=== PATIENT | male | born 1940 | race Caucasian/White ===

== ENCOUNTER → 2020-06-08 | Outpatient (REF) | LOC: ZLAB.WCH 10:03 | DX: Z01.89 Encounter for other specified special examinations (principal) ==

== ENCOUNTER → 2020-09-08 | Outpatient (CLI) | payer MEDICARE ==
[~2020-09-08] MED LIST: BACTRIM DS 8001 TAB PO; BUSPAR10 MG PO; CLARITIN 1010 MG/TAB PO; DEPAKOTE ER 50500 MG PO; DEPAKOTE500 MG PO; DIFLUCAN200 MG PO; FLAGYL500 MG PO; LEVAQUIN 750MG750 M1 PO; OMNICEF 300MG300 MG PO; OS-CAL 500 + D1 TAB PO; PROTONIX 40MG T40 MG PO; SEROQUEL 2525 MG/TAB PO; ULTRAM 50MG TAB50 MG PO; ZOLOFT 100MG100 MG PO
== END ==
LOC: ZCOL.LAB
DX: Z01.89 Encounter for other specified special examinations (principal)

== ENCOUNTER → 2020-09-29 | Outpatient (REF) | LOC: ZLAB.WCH 10:12 | DX: Z01.89 Encounter for other specified special examinations (principal) ==

== ENCOUNTER 2020-10-10 18:47 | Inpatient (IN) | payer MEDICARE ==
--- NOTE | 2020-10-10 19:30 | NUR ---
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 Call marnie w/i reach, NPO status.
[2020-10-10 20:58] VITALS: BP 124/91; PULSE 103; TEMP 97.6
[2020-10-10] MEDS ORDERED: BACTRIM DS 8001 TAB PO (21:31)
[2020-10-10] MEDS ORDERED: OS-CAL 500 + D1 TAB PO (21:32)
[2020-10-10] MEDS ORDERED: ZOLOFT 100MG100 MG PO (21:33)
[2020-10-10] MEDS ORDERED: PROTONIX 40MG T40 MG PO (21:34)
[2020-10-10] MEDS ORDERED: DEPAKOTE ER 50500 MG PO (21:34)
[2020-10-10] MEDS ORDERED: ULTRAM 50MG TAB50 MG PO (21:35)
[2020-10-10] MEDS ORDERED: CLARITIN 1010 MG/TAB PO (21:36)
[2020-10-10] MEDS ORDERED: BUSPAR10 MG PO (21:37)
[2020-10-10] MEDS ORDERED: SEROQUEL 2525 MG/TAB PO (21:37)
[2020-10-11 01:11] VITALS: BP 145/83; PULSE 72; TEMP 97.7
--- NOTE | 2020-10-11 01:47 | NUR ---
Patient called nurse into room, c/o pain to R arm- IV infiltrated into RAC, R arm swollen- removed IV with tip intact, elevated arm - ice applied.
[2020-10-11 03:39] VITALS: BP 121/80; PULSE 68; TEMP 97.6
--- NOTE | 2020-10-11 03:41 | NUR ---
Patient with new IV in L hand tolerating IV fluids as ordered, VS stable, NPO status maintained, urostomy continues to drain yellow urine per gravity to bag, ambulates independently in room, denies nausea/vomitting, had loose stools throughout shift. Updated on plan of care.
[2020-10-11 06:00] LABS: BASO % 0.4 % (0.0-2.0); EOS # 0.1 (0.0-0.7); EOS % 1.1 % (0-4.0); GRAN # 7.4 (1.4-6.5); GRAN % 78.2 % (42.2-75.2); HEMATOCRIT 58.2 % (42.0-52.0); HEMOGLOBIN 19.5 g/dl (13.5-18.0); LYMPH % 10.6 % (20.0-51.0); MEAN CELL VOLUME 95 fl (80.0-100.0); MEAN CORPUSCULAR HEMOGLOBIN 32 pg (27.0-31.0); MEAN CORPUSCULAR HGB CONC 34 g/dl (33.0-37.0); MEAN PLATELET VOLUME 8.3 fl (7.4-10.4); MONO # 0.8 (0.1-0.6); MONO % 8.5 % (1.7-9.3); PLATELET COUNT 295 K/mm3 (130-400); RED BLOOD COUNT 6.11 M/mm3 (4.20-5.60); REDCELL DISTRIBUTION WIDTH-CV 13.6 % (11.5-14.5)
[2020-10-11 06:11] LABS: ALBUMIN 3.7 gm/dL (3.5-5.0); BILIRUBIN,TOTAL 0.4 mg/dL (0.0-1.0); CALCIUM 8.9 mg/dL (8.4-10.2); CREATININE, serum 1.64 (0.66-1.25); POTASSIUM 4.7 mmol/L (3.4-5.0); TOTAL PROTEIN 7.2 gm/dL (6.4-8.2)
[2020-10-11 08:29] VITALS: BP 128/77; PULSE 66; TEMP 97.5
--- NOTE | 2020-10-11 09:08 | NUR ---
Patient resting in bed reporting pain 6/10 to lower abdomen cramping pain that has been constant up until right now and now it is intermittent. Will continue to monitor.
--- NOTE | 2020-10-11 11:02 | NUR ---
Patient was seen by Dr. Singh see new orders for Full Liquid diet. Patient has been having bowel movements, but keeps flushing the stool so nurse is unable to observe. Will continue to monitor. His is sitting at his side at this time.
[2020-10-11 11:42] VITALS: BP 115/57; PULSE 58; TEMP 97.8
--- NOTE | 2020-10-11 12:30 | NUR ---
SW met with patient to complete intake. Patient states that he lives in [place] with his Leta [phone]. Patient provies that he does not utilize DME nor does he need assistance with ADL's, patient states that he does not currently utilize HH services. Patient states that his PCP is Dr. Graham, pharmacy is [facility] and states he can afford his medications. Patient provides that he does not wish to appoint any one as DPOA-HC at this time. Patient states that his plan is to return to his [place] and does not have any questions or concerns with doing so at this time. SW will continue to follow.
--- NOTE | 2020-10-11 14:54 | NUR ---
Care resumed from Isela. Patient up to the bathroom, steady gait. Full liquid tray ordered. Denies nausea. SLight cramping pain. Ivf per orders. Urostomy managed independently by patient, reports he has had for 15 years. Anthony mejía.
[2020-10-11 16:02] VITALS: BP 118/65; PULSE 63; TEMP 97.7
--- NOTE | 2020-10-11 16:48 | NUR ---
Spoke to , called for discharge orders. Patient called & inquired about discharge. I spoke to patient. He denies nausea. He tolerated full liquids. Patient denies pain, he is worn out from having frequent loose stools. He thinks he would like to go home & rest in his own bed. Patient given all discharge instructions. Denies questions or concerns. Int dc. Patient wheeld out with all belongings & patient also given discharge education.
[2021-03-10] MEDS ORDERED: DIFLUCAN200 MG PO (06:03)
== END 2020-10-11 16:51 | disposition home or self-care (01) | DRG 390 ==
LOC: SURG 18:47
PROVIDERS: ADMIT Surgery
DX: K56.51 Intestinal adhesions [bands], with partial obstruction (principal); Z85.51 Personal history of malignant neoplasm of bladder; M19.90 Unspecified osteoarthritis, unspecified site; K21.9 Gastro-esophageal reflux disease without esophagitis; F32.9 Major depressive disorder, single episode, unspecified; Z96.653 Presence of artificial knee joint, bilateral
CPT/HCPCS: J3480

== ENCOUNTER → 2020-10-19 | Outpatient (CLI) | payer MEDICARE | LOC: COL.RAD 07:22 | DX: K56.690 Other partial intestinal obstruction (principal) ==

== ENCOUNTER → 2020-10-28 | Outpatient (REF) | LOC: ZLAB.WCH 10:23 | DX: Z01.89 Encounter for other specified special examinations (principal) ==

== ENCOUNTER 2021-01-12 00:12 | Inpatient (IN) | payer MEDICARE ==
[~2021-01-12] VITALS: Ht 180.3 cm; Wt 112.5 kg
[2021-01-12] VITALS (10 sets, daily range): BP systolic 113–144; BP diastolic 63–78; PULSE 65–102; TEMP 98.2–103.7
[~2021-01-12 00:12] MED LIST changes: -DEPAKOTE500 MG PO; -DIFLUCAN200 MG PO; -FLAGYL500 MG PO; -LEVAQUIN 750MG750 M1 PO; -OMNICEF 300MG300 MG PO
--- NOTE | 2021-01-12 01:39 | NUR ---
ADMITTED TO ROOM 343 VIA EMS, PATIENT UNABLE TO ASSIST WITH TRANSFER FROM EMS CART TO BED D/T SEVERE WEAKNESS. PATIENT ANSWERED ORIENTATION QUESTIONS WHEN REPEATED ORIENT QUESTIONS. UNABLE TO ANSWER QUESTIONS REGARDING HOME MEDS OR REASON FOR ADMISSION TO HOSP. PATIENT'S FACE VERY CRYSTAL AT THIS TIME. REPORTS SOME NAUSEA. HOSPITAL LIST EXAMINED PATIENT UPON ADMIT TO ROOM. OBSERVED TREMOR TO RIGHT HAND THAT PATIENT ADMITTED TO HAVING CHRONICALLY.
--- NOTE | 2021-01-12 01:42 | NUR ---
REMAINING IV BAG OF 500 ML, VERBAL ORDER BY HOSPITALIST ONCALL TO BOLUS OVER AN HOUR. IVF INFUSING WITH NO PROBLEMS CURRENTLY.
--- NOTE | 2021-01-12 01:44 | NUR ---
ATTEMPTED TO CONTACT PATIENT'S SPOUSE AT LISTED PHONE #, LMOM INFORMING SPOUSE TO CALL THIS NURSE TO REVIEW HOME MEDS PER MED REC AND ADDITIONAL INFORMATION NEEDED FOR ADMIT PURPOSES. WAITING PAINT LINE OPERATOR BACK FROM PATIENT'S SPOUSE.
--- NOTE | 2021-01-12 02:22 | NUR ---
PATIENT'S SPOUSE CALLED THIS NURSE, REVIEWED MED REC WITH SPOUSE (RENETTA) AND ADMISSION QUESTIONS REVIEWED/ANSWER PROVIDED BY RENETTA WITH NO FURTHER PATIENT RELATED NEEDS OR CONCERNS REPORTED AT END OF CALL.
--- NOTE | 2021-01-12 02:23 | NUR ---
ICE PACKS TO RIGHT AXILLA AND LEFT GROIN PLACED FOR TEMP WHILE WAITING FOR ORDERS. ATTEMPTED TO CONTACT PROVIDER WITH NO SUCCESS AT THIS TIME. WILL TRY AGAIN.
[2021-01-12 03:16] LABS: PH 7 (5-8); SQUAMOUS EPITHELIAL None Seen /hpf; URINE APPEARANCE Hazy; URINE BACTERIA Rare /hpf; URINE BILIRUBIN Negative (NEGATIVE); URINE BLOOD 2+ (NEGATIVE); URINE COLOR Yellow; URINE GLUCOSE Negative (NEGATIVE); URINE KETONE Negative (NEGATIVE); URINE LEUKOCYTE ESTERASE 3+ (NEGATIVE); URINE NITRATE Positive (NEGATIVE); URINE PROTEIN(semi-quant) 1+ (NEGATIVE); URINE UROBILINOGEN Negative (NEGATIVE)
[2021-01-12 03:21] LABS: COLLECTION METHOD UROSTOMY
--- NOTE | 2021-01-12 07:22 | NUR ---
CHANGE OF SHIFT REPORT GIVEN TO DAY SHIFT NURSE, DIANA WILSON.
[2021-01-12 07:26] LABS: HEMATOCRIT 43.7 % (42.0-52.0); HEMOGLOBIN 14.6 g/dl (13.5-18.0); MEAN CELL VOLUME 96 fl (80.0-100.0); MEAN CORPUSCULAR HEMOGLOBIN 32 pg (27.0-31.0); MEAN CORPUSCULAR HGB CONC 33 g/dl (33.0-37.0); MEAN PLATELET VOLUME 8.7 fl (7.4-10.4); PLATELET COUNT 195 K/mm3 (130-400); RED BLOOD COUNT 4.54 M/mm3 (4.20-5.60)
[2021-01-12 07:51] LABS: BAND 23 % (0-10); LYMPHOCYTE 6 % (20.0-51.0); METAMYELOCYTE 1 % (0-0); NEUTROPHILS 61 % (42.0-75.2); PLATELET ESTIMATE NORMAL (NORMAL)
[2021-01-12 08:16] LABS: CALCIUM 7.9 mg/dL (8.4-10.2); CREATININE, serum 1.6 (0.66-1.25); POTASSIUM 3.6 mmol/L (3.4-5.0)
[2021-01-12 08:21] LABS: VALPROIC ACID (DEPAKENE) 34.4 ug/mL (50.0-100.0)
[2021-01-12] MEDS ORDERED: DEPAKOTE500 MG PO (08:59)
--- NOTE | 2021-01-12 11:30 | NUR ---
Patient has been having a rough morning. He continues to have fevers and general body aches. He is also having abdominal pain. His urine is kristal and hazy. He is having loose stools, his stated he's been having that for a while and is not new. Patient gets confused when his temp starts to rise and gets whole body shakes. Explained that is due to the infection. Encouraged him to not add a bunch of blankets when he starts shaking because it's his body trying to get rid of the fever. He denies nausea. He stated his pain is not as bad but it gets worse as his temp rises. No other changes at this time. Call light within reach.
--- NOTE | 2021-01-12 13:47 | NUR ---
Initial visit; Patient thanked Cooker Process Cheese for looking in on him and offering prayer and God's blessings.
--- NOTE | 2021-01-12 13:57 | NUR ---
Sw met with the pt who stated his preference to return home once medically stable. The pt is independent on all ADLs and does not use any DME. The pt lives at home with his , Leta (ph# [phone]). The pt has a DPOA-HC, but it is a home. The pt PCP is Marky Le and he gets his medications from [facility] in [place], [place]. He has no trouble obtaining the cost. The pt has never used HH services before. No other needs stated at this time. Sw to await further recommendations and follow up as needed. D/C: Home
--- NOTE | 2021-01-12 18:48 | NUR ---
RECEIVED CHANGE OF SHIFT REPORT FROM DAY SHIFT NURSE. REPORT LLQ PAIN AT THIS TIME AND REQUESTED PAIN MEDS WHEN NEXT AVAILABLE TO TAKE. IVF INFUSING WITH NO PROBLEMS.
--- NOTE | 2021-01-12 19:00 | NUR ---
The afternoon was better for the patient. No fevers this afternoon but he still feels terrible. Medication given as needed for body aches. Denies nausea. He stated he continues to feel miserable. He is getting up well in the room. Motrin given for pain. Urine output is picking up. No other changes at this time. Call light within reach.
--- NOTE | 2021-01-12 19:31 | NUR ---
REPORTS FEELING HOT, REFUSE TO CHANGE OUT OF FLANNEL LONG PANTS AND T-SHIRT TO A HOSPITAL GOWN TO HELP COOL HIM DOWN, PATIENT STATING HE WOULD ALSO GET TOO COLD IF HE CHANGES TO HOSP GOWN.
--- NOTE | 2021-01-12 22:41 | NUR ---
PATIENT SLEEPING, AWAKENS SPONTANEOUSLY. DENIES ANY NEEDS AT THIS TIME. SEE MAR FOR MEDS GIVEN. IV FLUIDS INFUSING WITH NO PROBLEMS AT THIS TIME. DENIES CHILLING/CHEST PAIN/SOA AT THIS TIME. DENIES NAUSEA AT THIS TIME. REPORTS FEELING BETTER AFTER TAKEN PAIN MEDS AND GETTING SHOWER DONE. SKIN COOL AND DRY, COLOR NORMAL FOR PATIENT. BREATHING NONLABORED AND EVEN. OBSERVED PATIENT UP SEVERAL TIMES IN ROOM WITH STEADY GAIT AND PATIENT ORIENTED.
[2021-01-13 00:29] VITALS: TEMP 99.6
--- NOTE | 2021-01-13 00:39 | NUR ---
PATIENT REPORTS CHILLING, TEMP CHECKED, SEE [facility] FOR RESULT. MOTRIN GIVEN TO C/O CHILLING. DENIES ANY OTHER NEEDS OR CONCERNS. ENCOURAGED PATIENT TO CONTINUE TO DRINK MORE WATER.
--- NOTE | 2021-01-13 00:43 | NUR ---
PATIENT SHOWERED PRIOR TO BEDTIME WITH NO REPORTED PROBLEMS. PERFORMED OSTOMY CARE FOR ILEAL CONDUIT, CHANGED PHALANGE TO STOMA AND CHANGED UROSTOMY POUCH WITH NO REPORTED PROBLEMS, USED OWN OSTOMY SUPPLIES FROM HOME, PER PATIENT PREFERENCE.
--- NOTE | 2021-01-13 01:59 | NUR ---
DENIES CHILLING AT THIS TIME, REPORTS NOW CHILLING IS INTERMITTENT. REPORTS FEELS BETTER AND WAS ABLE TO BE UP IN ROOM WITH NO REPORTED PROBLEMS OR CONCERNS.
[2021-01-13 04:12] VITALS: BP 106/61; PULSE 69; TEMP 18
[2021-01-13 06:56] LABS: HEMATOCRIT 40.2 % (42.0-52.0); HEMOGLOBIN 13.2 g/dl (13.5-18.0); MEAN CELL VOLUME 98 fl (80.0-100.0); MEAN CORPUSCULAR HEMOGLOBIN 32 pg (27.0-31.0); MEAN CORPUSCULAR HGB CONC 33 g/dl (33.0-37.0); PLATELET COUNT 190 K/mm3 (130-400); RED BLOOD COUNT 4.12 M/mm3 (4.20-5.60); REDCELL DISTRIBUTION WIDTH-CV 14.1 % (11.5-14.5)
--- NOTE | 2021-01-13 07:06 | NUR ---
CHANGE OF SHIFT REPORT GIVEN TO DAY SHIFT NURSE, DIANA WILSON.
[2021-01-13 07:09] LABS: CALCIUM 7.5 mg/dL (8.4-10.2); CREATININE, serum 1.51 (0.66-1.25); POTASSIUM 3.8 mmol/L (3.4-5.0)
[2021-01-13 07:17] VITALS: BP 106/52; PULSE 58; TEMP 98
[2021-01-13 07:58] LABS: BAND 34 % (0-10); LYMPHOCYTE 9 % (20.0-51.0); NEUTROPHILS 46 % (42.0-75.2); PLATELET ESTIMATE NORMAL (NORMAL)
[2021-01-13 11:05] VITALS: BP 135/75; PULSE 71; TEMP 99
--- NOTE | 2021-01-13 11:30 | NUR ---
Patient started to having chills and shaking again this morning. Gave motrin because his temp was beging to increase to 99.6. Tramadol given for general body aching and pain. He has not been confused. Urine looks better today. Patient denies nausea. No other changes at this time. Call light within reach.
[2021-01-13 14:00] VITALS: BP 133/49; PULSE 67; TEMP 98.2
--- NOTE | 2021-01-13 18:30 | NUR ---
Patient is doing much better this afternoon. Denies pain and nausea at this time. He stated that his appliance started to leak so he changed it. Urine is gas dispatcher yellow and starting to clear up. His is at bedside. Patient stated he regretted eating supper because it upset his stomach. No other changes at this time. Call light within reach.
--- NOTE | 2021-01-13 19:09 | NUR ---
CHANGE OF SHIFT REPORT FROM DAY SHIFT NURSE.
[2021-01-13 19:24] VITALS: BP 105/41; PULSE 57; TEMP 98.6
[2021-01-14 00:03] VITALS: BP 97/43; PULSE 60; TEMP 97.9
[2021-01-14 03:55] VITALS: BP 119/76; PULSE 51; TEMP 98
--- NOTE | 2021-01-14 05:40 | NUR ---
PATIENT SLEEPING THROUGHOUT NIGHT WITH NO FURTHER REQUESTS FOR PAIN MEDS OR COMPLAINTS OF CHILLING THROUGHOUT NIGHT. RESP EVEN AND NONLABORED. IV FLUIDS INFUSING WITH NO PROBLEMS. UROSTOMY POUCH TO DEPENDENT DRAINAGE, DRAINING YELLOW URINE. PATIENT DENIES ANY NEEDS AT THIS TIME.
--- NOTE | 2021-01-14 07:00 | NUR ---
CHANGE OF SHIFT REPORT GIVEN TO DAY SHIFT NURSE, DIANA WILSON.
[2021-01-14 07:03] LABS: HEMOGLOBIN 13.2 g/dl (13.5-18.0); MEAN CELL VOLUME 97 fl (80.0-100.0); MEAN CORPUSCULAR HEMOGLOBIN 32 pg (27.0-31.0); MEAN CORPUSCULAR HGB CONC 33 g/dl (33.0-37.0); MEAN PLATELET VOLUME 8.9 fl (7.4-10.4); PLATELET COUNT 187 K/mm3 (130-400); RED BLOOD COUNT 4.11 M/mm3 (4.20-5.60); REDCELL DISTRIBUTION WIDTH-CV 14.2 % (11.5-14.5)
[2021-01-14 07:07] LABS: CALCIUM 7.6 mg/dL (8.4-10.2); CREATININE, serum 1.27 (0.66-1.25); POTASSIUM 3.7 mmol/L (3.4-5.0)
[2021-01-14 07:45] LABS: BAND 21 % (0-10); EOSINOPHIL 3 % (0-4); LYMPHOCYTE 9 % (20.0-51.0); METAMYELOCYTE 1 % (0-0); NEUTROPHILS 53 % (42.0-75.2); PLATELET ESTIMATE NORMAL (NORMAL)
[2021-01-14 08:00] VITALS: BP 139/69; PULSE 58; TEMP 98.1
[2021-01-14 11:23] VITALS: BP 109/50; PULSE 87; TEMP 98
--- NOTE | 2021-01-14 14:00 | NUR ---
Patient is doing much better today. No pain and no fevers this shift. Denies pain and nausea at this time. He took a shower today. IVF's stopped as ordered. He is moving around the room without issues. He stated he does not feel well, that he feels weak and tired. Explained that is to be expected because he was so sick for several days. No other changes at this time. Call light within reach.
--- NOTE | 2021-01-14 14:16 | NUR ---
This RN received report from KATIE Hinds. The patient was walking with PT but is now resting in bed. Patient had no complaints at this time.
[2021-01-14 19:45] VITALS: BP 136/69; PULSE 58; TEMP 99.3
--- NOTE | 2021-01-14 22:40 | NUR ---
Patient assessed around 2014. Alert and oriented x 4, and able to make needs known. Denies having pain and discomfort at this time. Peripheral INT to right AC. Site without redness, warmth, swelling, and pain. Denies having SOB and dyspnea. LS CTA. Respirations even and unlabored. HRR. Capillary refill less than 3 seconds. Non-tentin skin turgor. BSAx4. Abdomen soft and non-tender. Ileal conduit in place, clear yellow urine. No edema. Voices no questions, needs, or concerns at this time. Resting in bed with call light within reach.
[2021-01-14 23:51] VITALS: BP 117/60; PULSE 43; TEMP 98.1
[2021-01-15 03:19] VITALS: BP 152/82; PULSE 50; TEMP 97.5
--- NOTE | 2021-01-15 05:35 | NUR ---
Patient has been resting in bed with call light within reach. Voices no questions, needs, or concerns. Continues on IV ABXs per orders.
[2021-01-15 06:29] LABS: HEMATOCRIT 42.5 % (42.0-52.0); HEMOGLOBIN 14.3 g/dl (13.5-18.0); MEAN CELL VOLUME 96 fl (80.0-100.0); MEAN CORPUSCULAR HEMOGLOBIN 32 pg (27.0-31.0); MEAN CORPUSCULAR HGB CONC 34 g/dl (33.0-37.0); MEAN PLATELET VOLUME 9.5 fl (7.4-10.4); PLATELET COUNT 228 K/mm3 (130-400); RED BLOOD COUNT 4.44 M/mm3 (4.20-5.60); REDCELL DISTRIBUTION WIDTH-CV 14.2 % (11.5-14.5)
[2021-01-15 06:45] LABS: CALCIUM 8.2 mg/dL (8.4-10.2); CREATININE, serum 1.24 (0.66-1.25); POTASSIUM 3.6 mmol/L (3.4-5.0)
[2021-01-15 07:13] VITALS: BP 127/64; PULSE 57; TEMP 98.3
[2021-01-15] MEDS ORDERED: LEVAQUIN 750MG750 M1 PO (10:36)
[2021-01-15] MEDS ORDERED: FLAGYL500 MG PO (10:39)
--- NOTE | 2021-01-15 11:00 | NUR ---
Patient is discharging home later. He has been doing well over night. No fevers noted. He is eating and drniking without nausea. Denies pain. No other changes at this time. Call light within reach.
--- NOTE | 2021-01-15 11:18 | NUR ---
Patient was sleeping on Monday. Distribution Collection Operator prayed for patient while standing outside their door.
[2021-01-15 11:37] VITALS: BP 153/84; PULSE 58; TEMP 98.2
--- NOTE | 2021-01-15 14:45 | NUR ---
Patient is discharging home. Discharge instructions discussed with patient and his . No questions verbalized. Reminded patient to take his antibiotics until gone and that he got his first dose here. Explained when follow up appointments are. All belongings packed up and sent with patient. Copies of discharge instructions sent with patient. Patient walked out via wheel chair by Amy ESCAMILLA.
[2021-03-10] MEDS ORDERED: DIFLUCAN200 MG PO (06:03)
== END 2021-01-15 14:45 | disposition home or self-care (01) | DRG 872 ==
LOC: MEDICAL 00:12 → SURG 01:00 → MEDICAL 01-13 11:33 → SURG 01-15 14:45
PROVIDERS: Physician Assistant; Student in an Organized Health Care Education/Training Program; ADMIT Internal Medicine
DX: A41.9 Sepsis, unspecified organism (principal); N10 Acute pyelonephritis; N13.30 Unspecified hydronephrosis; K57.32 Diverticulitis of large intestine without perforation or abscess without bleeding; F32.9 Major depressive disorder, single episode, unspecified; K21.9 Gastro-esophageal reflux disease without esophagitis; E87.70 Fluid overload, unspecified; R53.81 Other malaise; G40.909 Epilepsy, unspecified, not intractable, without status epilepticus; F41.9 Anxiety disorder, unspecified; J30.2 Other seasonal allergic rhinitis; M19.90 Unspecified osteoarthritis, unspecified site; Z66 Do not resuscitate; Z20.822 Contact with and (suspected) exposure to COVID-19; Z96.653 Presence of artificial knee joint, bilateral; Z85.51 Personal history of malignant neoplasm of bladder
CPT/HCPCS: 99223-AI; 99232-AI; 99239; J0692; J0696; J1644; J1956; J7030

== ENCOUNTER → 2021-01-12 | Outpatient (REF) | LOC: ZLAB.WCH 09:21 | DX: Z01.89 Encounter for other specified special examinations (principal) ==

== ENCOUNTER → 2021-01-29 | Outpatient (REF) ==
[~2021-01-29] MED LIST changes: +DEPAKOTE500 MG PO; +DIFLUCAN200 MG PO; +FLAGYL500 MG PO; +LEVAQUIN 750MG750 M1 PO; +OMNICEF 300MG300 MG PO
== END ==
LOC: ZLAB.WCH 10:17
DX: Z01.89 Encounter for other specified special examinations (principal)

== ENCOUNTER 2021-03-07 17:06 | Emergency (ER) | payer MEDICARE ==
[~2021-03-07] VITALS: Ht 180.3 cm; Wt 102.3 kg
[~2021-03-07 17:06] MED LIST changes: -DIFLUCAN200 MG PO; -OMNICEF 300MG300 MG PO
[2021-03-07 17:15] VITALS: TEMP 98.7
[2021-03-07 19:31] LABS: COLLECTION METHOD CLEAN CATCH
[2021-03-07 19:43] LABS: PH 6 (5-8); SQUAMOUS EPITHELIAL None Seen /hpf; URINE APPEARANCE Cloudy; URINE BACTERIA Moderate /hpf; URINE BILIRUBIN Negative (NEGATIVE); URINE BLOOD 2+ (NEGATIVE); URINE COLOR Yellow; URINE GLUCOSE Negative (NEGATIVE); URINE KETONE Negative (NEGATIVE); URINE LEUKOCYTE ESTERASE 2+ (NEGATIVE); URINE NITRATE Negative (NEGATIVE); URINE PROTEIN(semi-quant) 2+ (NEGATIVE); URINE UROBILINOGEN Negative (NEGATIVE)
[2021-03-07 21:29] LABS: BASO % 0.3 % (0.0-2.0); EOS # 0.1 (0.0-0.7); EOS % 1.3 % (0-4.0); GRAN # 7.2 (1.4-6.5); HEMATOCRIT 43.6 % (42.0-52.0); LYMPH # 1.1 (1.2-3.4); LYMPH % 11.6 % (20.0-51.0); MEAN CELL VOLUME 90 fl (80.0-100.0); MEAN CORPUSCULAR HEMOGLOBIN 31 pg (27.0-31.0); MEAN CORPUSCULAR HGB CONC 34 g/dl (33.0-37.0); MEAN PLATELET VOLUME 8.6 fl (7.4-10.4); MONO # 1.2 (0.1-0.6); MONO % 12.4 % (1.7-9.3); PLATELET COUNT 183 K/mm3 (130-400); RED BLOOD COUNT 4.83 M/mm3 (4.20-5.60); REDCELL DISTRIBUTION WIDTH-CV 13.5 % (11.5-14.5)
[2021-03-07 21:44] LABS: BILIRUBIN,TOTAL 0.8 mg/dL (0.0-1.0); CALCIUM 8.6 mg/dL (8.4-10.2); CREATININE, serum 1.83 (0.66-1.25); POTASSIUM 4.4 mmol/L (3.4-5.0); TOTAL PROTEIN 7.4 gm/dL (6.4-8.2)
[2021-03-07] MEDS ORDERED: OMNICEF 300MG300 MG PO (23:23)
[2021-03-08 00:16] VITALS: BP 111/59; PULSE 69
[2021-03-10] MEDS ORDERED: DIFLUCAN200 MG PO (06:03)
== END 2021-03-08 00:27 | disposition home or self-care (01) ==
LOC: COL.ER 17:06
PROVIDERS: Nurse Practitioner
DX: N39.0 Urinary tract infection, site not specified (principal); K21.9 Gastro-esophageal reflux disease without esophagitis; F32.9 Major depressive disorder, single episode, unspecified; Z79.899 Other long term (current) drug therapy
CPT/HCPCS: J0696; J1170; J2270; J2405; J2550; J7030

== ENCOUNTER → 2021-03-10 | Outpatient (CLI) | payer MEDICARE ==
[~2021-03-10] MED LIST changes: +DIFLUCAN200 MG PO; +OMNICEF 300MG300 MG PO
== END ==
LOC: COL.RAD 10:02
DX: C67.8 Malignant neoplasm of overlapping sites of bladder (principal); R10.11 Right upper quadrant pain; R10.12 Left upper quadrant pain
CPT/HCPCS: Q9967

== ENCOUNTER 2021-04-29 09:07 | Inpatient (IN) | payer MEDICARE ==
[2021-04-29 10:32] VITALS: BP 122/77; PULSE 82; TEMP 98.1
--- NOTE | 2021-04-29 10:58 | NUR ---
Pt arrived to the unit from [place] via EMS. He is alert and oriented. Oriented him to his room as well as the plan for the day. Dr Walker has been in to see patient, new orders wrote. Notified Kaye with [facility] regarding pt being a difficult IV stick. Obtained order for PICC line. Pt rating pain 5/10 on admit. Pts in the room, admission complete
[2021-04-29 11:31] VITALS: BP 150/69; PULSE 80; TEMP 98.7
--- NOTE | 2021-04-29 13:09 | NUR ---
First visit from the residential energy auditor. No needs right now.
--- NOTE | 2021-04-29 14:47 | NUR ---
Pt doing okay. Pain has decreased since being here, no meds have been required. Pain now 2-08/26. Pt did have PICC line placed per [facility]. left to go home, reported that she would return tomorrow. Pt aware that he is to not have anything to eat or drink. No needs verbalized, call light within reach
--- NOTE | 2021-04-29 15:26 | NUR ---
Report given to KATIE Parry
[2021-04-29 15:35] VITALS: BP 113/61; PULSE 63; TEMP 98.8
[2021-04-29 19:33] VITALS: BP 132/76; PULSE 70; TEMP 97.8
--- NOTE | 2021-04-29 20:43 | NUR ---
Patient assessed around 1930. Alert and oriented x 4, and able to make needs known. Patient is NPO for bowel rest. Did take medications with sips of water. Denies pain and discomfort at this time. Denies nausea. BS hypoactive. Denies passing gas. Voices no questions, needs, or concerns at this time. IV fluids continues to PICC to RUE. In bed with call light within reach.
[2021-04-30] VITALS (7 sets, daily range): BP systolic 119–134; BP diastolic 63–89; PULSE 51–61; TEMP 97.4–98.5
--- NOTE | 2021-04-30 05:24 | NUR ---
Patient recieved PRN APAP as requested for headache this shift. Voices no further questions, needs, or concerns at this time. Denies upset stomach, abdominal pain, and nausea. In bed with call light within reach.
[2021-04-30 06:23] LABS: HEMATOCRIT 38.6 % (42.0-52.0); HEMOGLOBIN 12.9 g/dl (13.5-18.0); MEAN CELL VOLUME 97 fl (80.0-100.0); MEAN CORPUSCULAR HEMOGLOBIN 32 pg (27.0-31.0); MEAN CORPUSCULAR HGB CONC 33 g/dl (33.0-37.0); MEAN PLATELET VOLUME 9.2 fl (7.4-10.4); PLATELET COUNT 210 K/mm3 (130-400); RED BLOOD COUNT 3.99 M/mm3 (4.20-5.60); REDCELL DISTRIBUTION WIDTH-CV 15.4 % (11.5-14.5)
[2021-04-30 06:41] LABS: CALCIUM 8.9 mg/dL (8.4-10.2); CREATININE, serum 1.19 mg/dL (0.72-1.25); POTASSIUM 3.8 mmol/L (3.5-4.5)
--- NOTE | 2021-04-30 09:54 | NUR ---
KVNG met with the patient and his , Leta (ph#[phone]), to discuss discharge plan. The patient lives in [place] with his . Leta reports that the patient is independent with ADLs and does not have any DME. The patient's PCP is Dr. Patrick Zarate and he receives his medications at [facility]. She reports no difficulties obtaining his meds. The patient does not have a DPOA-HC in EMR, but Leta reports that the patient does have a DPOA-HC completed and that it designates her. The patient plans to return home with his upon discharge. No additional needs at this time. *Discharge plan: home with *
--- NOTE | 2021-04-30 12:26 | NUR ---
PT NOT HAVING ABDOMINAL PAIN BUT IS COMPLAINING OF HEADACHE. TYLENOL WAS GIVEN BUT PT STILL REPORTS PAIN 7 OUT OF 10. PT COMPLAINS OF STOMACH CRAMPS AFTER DIET WAS ADVANCED TO CLEAR LIQUIDS. MORPHINE GIVEN AND WILL REASSESS PAIN.
--- NOTE | 2021-04-30 13:23 | NUR ---
Pt still having complaints of severe headache. Dr Walker notified and new order recieved. PRN given. Pts has gone for the day.
--- NOTE | 2021-04-30 20:00 | NUR ---
PT IN BED. DENIES HEADACHE. REPORTS ABD PAIN IS GONE, ABLE TO DRINK SOME FLUIDS AND EAT JELLO WITHOUT PROBLEM. IVF TO RT PICC.
--- NOTE | 2021-04-30 21:30 | NUR ---
PT TAKES HS MEDS WITHOUT PROBLEM. DENIES N/V OR ABD PAIN AT THIS TIME. UROSTOMY WITH YELLOW URINE. ABD SOFT WITH HYPOACTIVE BOWEL SOUNDS.
[2021-05-01 03:42] VITALS: BP 123/74; PULSE 58; TEMP 98.6
--- NOTE | 2021-05-01 03:50 | NUR ---
PT REPORTS MIGRAINE HEADACHE. MEDICATED WITH FIORCET 2 TABS PO NOW. REPORTS HAVING BM TONIGHT.
--- NOTE | 2021-05-01 05:24 | NUR ---
PT REPORTS HEADACHE IS GONE.
--- NOTE | 2021-05-01 07:32 | NUR ---
Patient up and awake this am. Set up for shower. Patient anticipating discharge home today. Requesting Picc line be DC. Instucted him that we will wait until physican sees him. He reports passing flatus & having Bm this am. Breakfast tray ordered. Patient independent with illeoconduit cares, denies the need for assistance or supplies. Will monitor.
[2021-05-01 09:09] VITALS: BP 125/69; PULSE 62; TEMP 97.5
--- NOTE | 2021-05-01 10:18 | NUR ---
Patient ready for discharge. rounded. All discharge paperwork reviewed with patient, he denies any questions or concerns. Picc removed, patient tolerated well. Picc dc instructions given. patient had low fiber diet breakfast without nausea or vomiting. Ian wheeled out with all belongings, his taking him home.
== END 2021-05-01 10:20 | disposition home or self-care (01) | DRG 390 ==
LOC: SURG 09:45
PROVIDERS: ADMIT Surgery
PROC: 02HV33Z Insertion of Infusion Device into Superior Vena Cava, Percutaneous Approach (ICD-10-PCS; principal; 2021-04-29)
DX: K56.50 Intestinal adhesions [bands], unspecified as to partial versus complete obstruction (principal); M19.90 Unspecified osteoarthritis, unspecified site; K21.9 Gastro-esophageal reflux disease without esophagitis; F32.A Depression, unspecified; Z96.653 Presence of artificial knee joint, bilateral; Z85.51 Personal history of malignant neoplasm of bladder
CPT/HCPCS: C1751; J1650; J2270; J7120

== ENCOUNTER → 2021-09-20 | Outpatient (CLI) | payer MEDICARE | LOC: ZCOL.LAB 17:37 | DX: F44.5 Conversion disorder with seizures or convulsions (principal) ==

== ENCOUNTER → 2021-10-29 | Outpatient (REF) | LOC: ZLAB.WCH 15:58 | DX: Z01.89 Encounter for other specified special examinations (principal) ==

== ENCOUNTER 2022-01-02 11:41 | Observation (INO) | payer MEDICARE ==
[~2022-01-02] VITALS: Ht 180.3 cm; Wt 99.8 kg
[2022-01-02 12:36] VITALS: BP 150/75; PULSE 86; TEMP 99.3
--- NOTE | 2022-01-02 13:00 | NUR ---
Pt recently arrived to the floor via EMS from [place]. Pt is drowsy, rates pain 7/10 but does fall asleep between conversations. Pt has urostomy with very cloudy yellow output. Pt reports that it is not typically like this, typically it is clear. Pt is hard of hearing, does not have hearing aids. Dr Torres aware of pts arrival.
--- NOTE | 2022-01-02 13:50 | NUR ---
Dr Torres has been in to see pt, order for consent, consent signed and pt off the floor for surgery
[2022-01-02] MEDS ORDERED: CEPHALEXIN500 M1 PO (14:56)
[2022-01-02 15:30] VITALS: BP 118/78; PULSE 83
[2022-01-02 15:45] VITALS: BP 129/73; PULSE 81
[2022-01-02 16:00] VITALS: BP 131/74; PULSE 83
[2022-01-02 16:15] VITALS: BP 121/79; PULSE 83; TEMP 99
--- NOTE | 2022-01-02 17:24 | NUR ---
Reviewed discharge instructions with pt and his to include follow up appointment and prescription. All questions answered. INT removed from right wrist. Pt escorted out at this time
== END 2022-01-02 17:24 | disposition home or self-care (01) ==
LOC: SURG 11:41
PROVIDERS: ADMIT Urology
DX: N20.1 Calculus of ureter (principal); Z85.51 Personal history of malignant neoplasm of bladder; Z93.6 Other artificial openings of urinary tract status
CPT/HCPCS: C1726; C1758; C1769; C2617; J0690; J1100; J2370; J2405; J2704; J3010; Q9967

== ENCOUNTER → 2022-03-07 | Outpatient (CLI) | payer MEDICARE ==
[~2022-03-07] MED LIST changes: +CEPHALEXIN500 M1 PO
== END ==
LOC: COL.RAD 10:14
DX: C67.8 Malignant neoplasm of overlapping sites of bladder (principal); Z90.6 Acquired absence of other parts of urinary tract

== ENCOUNTER 2022-10-24 00:15 | Inpatient (IN) | payer MEDICARE ==
[~2022-10-24] VITALS: Ht 180.3 cm; Wt 105.3 kg
[2022-10-24] VITALS (8 sets, daily range): BP systolic 125–145; BP diastolic 68–83; PULSE 55–62; TEMP 97.5–98.3
[2022-10-24 00:39] LABS: HEMATOCRIT 46.7 % (42.0-52.0); HEMOGLOBIN 16.3 g/dl (13.5-18.0); MEAN CELL VOLUME 93 fl (80.0-100.0); MEAN CORPUSCULAR HEMOGLOBIN 33 pg (27-31); MEAN CORPUSCULAR HGB CONC 35 g/dl (33.0-37.0); MEAN PLATELET VOLUME 8.9 fl (7.4-10.4); PLATELET COUNT 206 K/mm3 (130-400); REDCELL DISTRIBUTION WIDTH-CV 13.7 % (11.5-14.5)
[2022-10-24 00:49] LABS: ALANINE AMINOTRANSFERASE 20 U/L (0-55); ALBUMIN 3.4 gm/dL (3.4-4.8); ALKALINE PHOSPHATASE 49 U/L (40-150); ANION GAP 12 mmol/L (7-16); AST,SGOT 21 U/L (5-34); BILIRUBIN,TOTAL 0.7 mg/dL (0.2-1.2); BLOOD UREA NITROGEN 26 mg/dL (8-26); CALCIUM 9.2 mg/dL (8.4-10.2); CARBON DIOXIDE 20 mmol/L (23-31); CHLORIDE 106 mmol/L (98-107); CREATININE, serum 1.69 mg/dL (0.72-1.25); GLUCOSE 102 mg/dL (70-99); POTASSIUM 3.8 mmol/L (3.5-4.5); SODIUM 138 mmol/L (136-145); TOTAL PROTEIN 7.1 gm/dL (6.2-8.1)
[2022-10-24 00:57] LABS: TROPONIN-I < 0.010 ng/mL (0.00-0.033)
[2022-10-24 01:08] LABS: ACETAMINOPHEN < 1.0 ug/mL (10-30); ALCOHOL(ethanol),MEDICAL < 10 mg/dL (0-10); SALICYLATE < 5.0 mg/dL (15.0-30.0)
[2022-10-24 01:09] LABS: BAND 3 % (0-10); BASOPHIL 1 % (0-2); EOSINOPHIL 1 % (0-4); LYMPHOCYTE 31 % (20.0-51.0); METAMYELOCYTE 2 % (0-0); NEUTROPHILS 46 % (42.0-75.2); PLATELET ESTIMATE NORMAL (NORMAL)
[2022-10-24 01:37] LABS: COLLECTION METHOD UROSTOMY
[2022-10-24 01:47] LABS: BUDDING YEAST Present (NOT PRESENT); SQUAMOUS EPITHELIAL 0-2 /hpf (0-10); URINE BACTERIA Occasional /hpf (NONE SEEN)
[2022-10-24 01:48] LABS: URINE APPEARANCE Cloudy (CLEAR/HAZY); URINE BLOOD 2+ (NEGATIVE); URINE COLOR Yellow (YELLOW); URINE GLUCOSE Negative (NEGATIVE); URINE KETONE Negative (NEGATIVE); URINE NITRATE Positive (NEGATIVE); URINE PROTEIN(semi-quant) 1+ (NEGATIVE); URINE UROBILINOGEN 0.2 E.U/dL (0.2-1.0)
[2022-10-24 01:51] LABS: TRICYCLIC ANTIDEPRESS URINE POSITIVE
[2022-10-24] MEDS ORDERED: SYNTHROID 0.0.025 MG PO (02:11)
[2022-10-24] MEDS ORDERED: ZOLOFT 100MG100 MG PO (02:13)
--- NOTE | 2022-10-24 05:00 | NUR ---
THE PATIENT ARRIVED VIA CART FROM THE ED ACCOMPANIED BY ED STAFF. THE PATIENT WAS ALERT TO SELF AND PLACE BUT NOT TIME. THE PATIENT WAS ORIENTED TO THE ROOM AND BED CONTROLS. NO S/S OF DISTRESS NOTED. THE BED IS IN THE LOW POSITION, BED ALARM ON AND CALL LIGHT WITHIN REACH.
--- NOTE | 2022-10-24 10:50 | NUR ---
SW met with patient to complete intake and discuss discharge plan. Patient reports that he lives at home with his Leta ([phone]) in [place]. He reports to being indpendent with his ADL's and IADL's. He denies utilizing any DME to assist with mobility. He has no home oxygen needs aside from a cpap at night. Pcp is Dr. Zarate and he utilizes [facility] for prescriptions. Patients reports that he does have a DPOA-HC established listing his as his agent. Phone call made to PCP office, who denies having a copy on file. Patient observed walking halls with PT. Will wait for their final recommendations. DIscharge plan: Home
--- NOTE | 2022-10-24 13:27 | NUR ---
PT RESTING IN BED UPON ASSESSMENT. MORNING MEDICATIONS ADMINISTERED. SHIFT ASSESSMENT COMPLETED. PT ALERT AND ANSWERED SOME QUESTIONS APPROPRIATELY BUT HAD SOME FORGETFULNESS. PT ABLE TO FOLLOW COMMANDS. UROSTOMY BAG DRAINING WELL. IVF INFUSING. NEWLY PLACED PICC FLUSHES AND HAS GOOD BLOOD RETURN. CALL LIGHT WITHIN REACH, BED ALARMS IN PLACE. WILL CONTINUE TO MONITOR.
--- NOTE | 2022-10-24 20:10 | NUR ---
Pt lying supine in bed upon this nurse's entry into room w/ eyes closed. Arouses w/ ease. A&Ox3. Pt unsure of date, but does guess month accurately. Scheduled PM PO medications admin w/o difficulty. Shift assessment performed. Pt denies any pain, nausea, lightheadedness, or dizziness. Respirations are even and unlabored on room air. Abd is rounded and firm. No TTP of abd. Urostomy secured to bag and draining w/o difficulty. SCDs applied to BLE. Pt has no complaints or concerns. Call light in reach.
[2022-10-25] VITALS (20 sets, daily range): BP systolic 120–154; BP diastolic 60–86; PULSE 49–81; TEMP 97.5–98.5
--- NOTE | 2022-10-25 00:25 | NUR ---
Pt lying in bed w/ eyes closed w/ PCT in room obtaining VS upon this nurse's entry to room. Pt arouses w/ ease. Neuro checks performed. Pt continues to be oriented to person and place and time of day. However, pt is disoriented to date. Pt reoriented. Pt denies any pain or nausea. No complaints or concerns voiced. Call light in reach.
--- NOTE | 2022-10-25 06:01 | NUR ---
Pt lying supine in bed w/ eyes closed in dark room. Arouses w/ ease. A&O to person and place. Reoriented to time and date. Pt has been NPO. AM medications admin PO w/ small sip of H2O. Pt reminded of looposcopy w/ @ 1400 today. Pt verbalizes understanding. No complaints or concerns voiced. Call light in reach.
[2022-10-25 06:43] LABS: BASO # 0.1 K/mm3 (0.0-0.2); BASO % 0.8 % (0.0-2.0); EOS # 0.3 K/mm3 (0.0-0.7); EOS % 3.9 % (0.0-4.0); GRAN # 3.7 K/mm3 (1.4-6.5); GRAN % 55.3 % (42.2-75.2); HEMATOCRIT 44.9 % (42.0-52.0); HEMOGLOBIN 15.3 g/dl (13.5-18.0); LYMPH # 1.6 K/mm3 (1.2-3.4); LYMPH % 24.6 % (20.0-51.0); MEAN CELL VOLUME 95 fl (80.0-100.0); MEAN CORPUSCULAR HEMOGLOBIN 32 pg (27-31); MEAN CORPUSCULAR HGB CONC 34 g/dl (33.0-37.0); MEAN PLATELET VOLUME 9.2 fl (7.4-10.4); MONO % 14.5 % (1.7-9.3); PLATELET COUNT 196 K/mm3 (130-400); RED BLOOD COUNT 4.72 M/mm3 (4.20-5.60); REDCELL DISTRIBUTION WIDTH-CV 13.7 % (11.5-14.5)
[2022-10-25 06:56] LABS: CALCIUM 8.4 mg/dL (8.4-10.2); CREATININE, serum 1.55 mg/dL (0.72-1.25); POTASSIUM 4.1 mmol/L (3.5-4.5)
--- NOTE | 2022-10-25 07:53 | NUR ---
REPORT RECEIVED AND NOTED.
--- NOTE | 2022-10-25 08:01 | NUR ---
PATIENT HAS NO COMPLAINTS OF SOA OR PAIN AT THIS TIME. HE IS ALERT AND ORIENTED X 3 THIS MORINING. HE DOES HAVE HISTORY OF FORGETFULNESS. LUNGS CLEAR TO AUSCULTATION. BOWEL SOUNDS PRESENT IN ALL 4 QUADRANTS. HE HAS 2+ PITTING EDEMA TO BOTH LOWER EXTREMITIES. HE HAS LR RUNNING AND ALSO ANTIBIOTIC IN HIS PICC CURRENTLY. PICC FLUSHED WITHOUT ANY ISSUES AND CONTINUES TO HAVE BLOOD RETURN. WILL CONTINUE TO MONITOR.
--- NOTE | 2022-10-25 09:38 | NUR ---
THIS RN ASSISTED GENA QUINN WITH MEDICATION ADMINISTRATION, ASSESSMENTS, AND DOCUMENTATION.
--- NOTE | 2022-10-25 09:59 | NUR ---
Patient scheduled to get surgery today at 1400.
--- NOTE | 2022-10-25 10:39 | NUR ---
Initial visit; Patient thanked Chief Development Officer for looking in on him and offering prayer and God's blessings. Chief Development Officer inquired as to how patient came to [place] from [place]. He stated that his son lived here brought them here. His son later but he and his just stayed. stated that she was glad that they did.
--- NOTE | 2022-10-25 11:11 | NUR ---
Antibiotic has infused. Pt unhooked from infusion. He did walk with PT. Pt currently laying down at this time resting.
--- NOTE | 2022-10-25 12:47 | NUR ---
Patient just left with surgery staff for his looposcopy. He will return to his room post procedure.
--- NOTE | 2022-10-25 14:47 | NUR ---
SURGERY CALLED REPORT ON PT. VS WERE STABLE. HE WAS ABLE TO TAKE A SIP OF WATER WITHOUT ANY ISSUES. HE HAD GENERAL ANETHESIA. HE DENIED PAIN AND NO NAUSEA. PT ARRIVED TO FLOOR. THIS NURSE ASSISTED SURGERY WITH MOVING PATIENT BACK INTO ROOM. VS: 97.8 81 16 132/66 93%RA. DATASCOPE SET FOR AUTOMATIC VITAL SIGNS TO BE OBTAINED PER PROTOCOL. WILL CONTINUE TO MONITOR.
--- NOTE | 2022-10-25 20:05 | NUR ---
Pt lying supine in bed w/ spouse @ bedside upon this nurse's entry. A&Ox4. Pleasant and sociable demeanor. PM scheduled medications admin PO w/o difficulty. Shift assessment completed. Pt is s/p looposcopy. Urostomy is in place and draining clear yellow urine. Urostomy stoma is pink. Skin around urostomy appears free of skin variances. Respirations are even and unlabored on room air. Pt denies pain, nausea, or febrile symptoms. No complaints or concerns voiced. Call light in reach.
--- NOTE | 2022-10-25 20:40 | NUR ---
2029 BUSINESS SERVICES ASSISTANT NOTIFIED NURSE OF HR GOING BELOW 50 AND STAYING AROUND 48.
--- NOTE | 2022-10-25 22:17 | NUR ---
NOTIFIED NURSE ABOUT PT'S HR GOING DOWN TO 43 AND NURSE CALLED BACK TO LOWER THE LOW PARAMETERS TO 45.
[2022-10-26 00:16] VITALS: BP_SYST 128
--- NOTE | 2022-10-26 00:57 | NUR ---
Pt lying supine in bed w/ eyes closed w/ spouse still @ bedside. Pt arouses w/ ease. Neuro check performed. A&Ox4. No neuro deficits found. Respirations are even and unlabored. Pt denies discomfort or any needs. Call light in reach.
[2022-10-26 03:56] VITALS: BP 144/74; PULSE 49; TEMP 98.1
[2022-10-26 04:07] VITALS: BP_SYST 144
[2022-10-26 06:18] LABS: BASO % 0.6 % (0.0-2.0); EOS # 0.2 K/mm3 (0.0-0.7); EOS % 3.4 % (0.0-4.0); GRAN # 4.2 K/mm3 (1.4-6.5); GRAN % 62.5 % (42.2-75.2); HEMATOCRIT 42.7 % (42.0-52.0); HEMOGLOBIN 14.6 g/dl (13.5-18.0); LYMPH # 1.5 K/mm3 (1.2-3.4); LYMPH % 21.9 % (20.0-51.0); MEAN CELL VOLUME 95 fl (80.0-100.0); MEAN CORPUSCULAR HEMOGLOBIN 32 pg (27-31); MEAN CORPUSCULAR HGB CONC 34 g/dl (33.0-37.0); MEAN PLATELET VOLUME 9.2 fl (7.4-10.4); MONO # 0.7 K/mm3 (0.1-0.6); MONO % 10.9 % (1.7-9.3); PLATELET COUNT 180 K/mm3 (130-400); RED BLOOD COUNT 4.51 M/mm3 (4.20-5.60); REDCELL DISTRIBUTION WIDTH-CV 13.7 % (11.5-14.5)
[2022-10-26 06:36] LABS: CALCIUM 7.8 mg/dL (8.4-10.2); CREATININE, serum 1.42 mg/dL (0.72-1.25); MAGNESIUM 1.6 mg/dL (1.6-2.6); POTASSIUM 3.8 mmol/L (3.5-4.5)
[2022-10-26 07:35] VITALS: BP 151/66; PULSE 50; TEMP 97.4
[2022-10-26 09:00] VITALS: BP_SYST 151
[2022-10-26] MEDS ORDERED: AMOXICILLIN 8751 TAB PO (09:19)
--- NOTE | 2022-10-26 10:18 | NUR ---
Patient scheduled to discharge later today. at bedside. MCR.IM form and education provided to patient and spouse. Both patient and his verbalizes their understanding and agreement with discharge plan. Signed priginal placed in the patients chart and copy provided to the patient. Discharge plan: Home
[2022-10-26 11:42] VITALS: BP 128/85; PULSE 71; TEMP 98.1
== END 2022-10-26 11:45 | disposition home or self-care (01) | DRG 659 ==
LOC: COL.ER 00:15 → MEDICAL 02:49
PROVIDERS: Emergency Medicine; Nurse Practitioner Family; Physician Assistant; Urology; ADMIT Internal Medicine
PROC: 02HV33Z Insertion of Infusion Device into Superior Vena Cava, Percutaneous Approach (ICD-10-PCS; principal; 2022-10-24)
PROC: 0T778DZ Dilation of Left Ureter with Intraluminal Device, Via Natural or Artificial Opening Endoscopic (ICD-10-PCS; 2022-10-25 14:00)
PROC: BT1F1ZZ Fluoroscopy of Left Kidney, Ureter and Bladder using Low Osmolar Contrast (ICD-10-PCS; 2022-10-25 14:00)
DX: T83.69XA Infection and inflammatory reaction due to other prosthetic device, implant and graft in genital tract, initial encounter (principal); G93.41 Metabolic encephalopathy; N13.6 Pyonephrosis; N17.9 Acute kidney failure, unspecified; N99.89 Other postprocedural complications and disorders of genitourinary system; K21.9 Gastro-esophageal reflux disease without esophagitis; F32.A Depression, unspecified; Z66 Do not resuscitate; T40.605A Adverse effect of unspecified narcotics, initial encounter; M25.512 Pain in left shoulder; E03.9 Hypothyroidism, unspecified; G40.909 Epilepsy, unspecified, not intractable, without status epilepticus; M19.90 Unspecified osteoarthritis, unspecified site; B96.1 Klebsiella pneumoniae [K. pneumoniae] as the cause of diseases classified elsewhere; Z85.51 Personal history of malignant neoplasm of bladder; Z79.890 Hormone replacement therapy; Z90.79 Acquired absence of other genital organ(s); Z87.19 Personal history of other diseases of the digestive system
CPT/HCPCS: C1726; C1751; C1758; C1769; C2617; J0690; J0696; J2405; J2543; J2704; J3010; J7030; J7120; Q9967